=== PATIENT | female | born 1960 | race Caucasian/White ===

== ENCOUNTER → 2016-03-12 | Outpatient (CLI) | payer BC ==
[~2016-03-12] MED LIST: ACET-1311 PO; ASCO500T3 PO; B-COTAB18 PO; BIOT1CAP8 PO; CHOL20005 PO; SPIR25TA PO; VITAMIN E PO; [UNRECOGNIZED DRUG - OTHER] PO
--- NOTE | 2016-03-12 13:53 | DIAGNOSTIC IMAGING REPORT ---
CHEST CT WITHOUT CONTRAST CT DOSE: 172.41 mGycm HISTORY: R91.1 Solitary pulmonary [id number] TECHNIQUE: Multiaxial CT images of the chest were performed without contrast. COMPARISON: Chest CT 08/20/2015. Chest CT 04/14/2012. Chest 05/12/2015. FINDINGS: The central airways are patent. No pleural effusions. No pneumothorax. The 4 mm nodule within the right upper lobe on the 05/02/2015 study is not present. No new or suspicious pulmonary nodules identified. No new focal lung consolidations. Stable 4 mm nodule within the right lower lobe on image 208. This demonstrates greater than 2 year stability and is considered to be benign. There is also a stable 3 mm subpleural nodular density within the right middle lobe on image 197 and a stable 4 mm subpleural nodular density within the right middle lobe on image 153. 4 mm nodular density along the left major fissure on image 110 is also stable. No suspicious lytic or blastic osseous lesions. No mediastinal or hilar lymphadenopathy. Normal caliber thoracic aorta. The visualized liver, spleen, and adrenal glands are unremarkable. IMPRESSION: 1. A 4 mm nodule within the right upper lobe on the 05/02/2015 study is not present. No additional follow-up required. 2. Additional scattered tiny pulmonary nodules as described above demonstrate greater than 2 year stability and are considered to be benign. Electronically signed by: Osmany Zhong M.D. 03/12/2016 1:51 PM Dictated Date/Time: 03/12/2016 1:36 PM
== END | disposition home or self-care (01) ==
LOC: C.CTS 12:49
PROVIDERS: ATTEND Internal Medicine
DX: R91.1 Solitary pulmonary nodule (principal)

== ENCOUNTER → 2016-09-15 | Day surgery (SDC) | payer BC ==
[2016-09-07 08:56] VITALS: Ht 165.1 cm; Wt 62.7 kg
[~2016-09-15] VITALS: Ht 165.1 cm; Wt 62.7 kg
[~2016-09-15] MED LIST changes: +LIDOCAINE HCL 2% 2 ML VIAL (20MG/ML) ONE; +PROPOFOL IV EMULSION 10 MG/ML 20 ML VIAL IV ONE; +SODIUM CHLORIDE 0.9% 500ML 500 ML IV ONE
[2016-09-15 09:35] VITALS: TEMP 36.7
--- NOTE | 2016-09-15 10:04 | Endo History and Physical ---
History & Physical Date of Service: Sep 15, 2016. Chief Complaint: SCREENING FOR COLON CANCER Referring Physician: DR. ANGEL History of Present Illness 56 yo CF who presents for screening colonoscopy. Past Surgical History Hx Cardiac Surgery: No Hx Internal Defibrillator: No Hx Pacemaker: No Hx Abdominal Surgery: Yes () Hx of Implantable Prosthesis: No Hx Post-Op Nausea and Vomiting: No Hx Cancer Surgery: Yes ([facility] BSO) Hx Thoracic Surgery: No Hx Orthopedic: No Family History Colon CA Social History Smoking Status: Never Smoker Hx Substance Use: No Hx Alcohol Use: Yes (OCCASIONALLY) Allergies Coded Allergies: Sulfa Drugs (Verified Allergy, Unknown, HIVES, 09/15/16) Uncoded Allergies: ANIMALS (Allergy, Unknown, WATERY EYES, 09/07/16) ENVIRONMENTAL ALLERGIES (Allergy, Unknown, ITCHING, 09/07/16) Current Medications Reported Home Medications Medications Dose Route/Sig Max Daily Dose Days Date Category Tylenol (Acetaminophen) 325 Mg Tab 325 Mg PO 09/15/16 Reported Vitamin B Complex (B-Complex Vitamins) 1 Tab Tab 1 Tab PO QAM 09/07/16 Reported Biotin 1 Mg Cap 1 Cap PO QAM 09/07/16 Reported [Vitamin E] 1,200 Mcg PO QAM 09/07/16 Reported Vitamin C (Ascorbic Acid) 500 Mg Tab 1 Tab PO QAM 09/07/16 Reported [Tripple [place]] 1 Cap PO QAM 09/07/16 Reported Vitamin D3 (Cholecalciferol) 2,000 Unit Tab 1 Tab PO QAM 09/07/16 Reported Aldactone (Spironolactone) 25 Mg Tab 25 Mg PO BID 09/07/16 Reported Vital Signs Weight (Kilograms): 62.73 Height (Feet): 5 Height (Inches): 5 Date Time Temp Pulse Resp B/P (MAP) Pulse Ox O2 Delivery O2 Flow Rate FiO2 09/15/16 09:35 36.7 90 18 124/71 (88) 100 Room Air Physical Exam General Appearance: WD/WN, no apparent distress Respiratory/Chest: Auscultation: breath sounds normal Cardiovascular: Heart Auscultation: RRR Abdomen: Bowel Sounds: normal Inspection & Palpation: soft, non-distended, no tenderness, guarding & rebound Assessment and Plan Assessment: 56 yo CF who presents for screening colonoscopy. Plan: Proceed with colonoscopy.
--- NOTE | 2016-09-15 11:05 | GI REPORT ---
Procedure Date: 09/15/2016 9:55 AM Procedure: Colonoscopy Indications: Screening for colorectal malignant neoplasm Medicines: Monitored Anesthesia Care Complications: No immediate complications. Estimated Blood Loss: Estimated blood loss: none. Procedure: Pre-Anesthesia Assessment: - Prior to the procedure, a History and Physical was performed, and patient medications and allergies were reviewed. The patient's tolerance of previous anesthesia was also reviewed. The risks and benefits of the procedure and the sedation options and risks were discussed with the patient. All questions were answered, and informed consent was obtained. Prior Anticoagulants: The patient has taken no previous anticoagulant or antiplatelet agents. ASA Grade Assessment: I - A normal, healthy patient. After reviewing the risks and benefits, the patient was deemed in satisfactory condition to undergo the procedure. After I obtained informed consent, the scope was passed under direct vision. Throughout the procedure, the patient's blood pressure, pulse, and oxygen saturations were monitored continuously. The scope was introduced through the anus and advanced to the terminal ileum. The colonoscopy was performed without difficulty. The patient tolerated the procedure well. The quality of the bowel preparation was good. The terminal ileum, ileocecal valve, appendiceal orifice, and rectum were photographed. Findings: The entire examined colon appeared normal. Impression: - The entire examined colon is normal. - No specimens collected. Recommendation: - Resume previous diet. - Continue present medications. - Repeat colonoscopy in 5 years for surveillance. - Return to primary care physician as previously scheduled. Tommy Badillo DO 09/15/2016 11:04:13 AM This report has been signed electronically. Note Initiated On: 09/15/2016 9:55 AM I attest to the content of the Intraoperative Record and orders documented therein, exceptions below
--- NOTE | 2016-09-15 11:14 | Discharge Instructions ---
Endoscopy Patient Instructions Date / Procedure(s) Performed Sep 15, 2016. Colonoscopy Allergy Information Coded Allergies: Sulfa Drugs (Verified Allergy, Unknown, HIVES, 09/15/16) Uncoded Allergies: ANIMALS (Allergy, Unknown, WATERY EYES, 09/07/16) ENVIRONMENTAL ALLERGIES (Allergy, Unknown, ITCHING, 09/07/16) Discharge Date / Findings Sep 15, 2016. Normal colonoscopy Medication Instructions OK to resume all medications today as prescribed Reported Home Medications Medications Dose Route/Sig Max Daily Dose Days Date Category Tylenol (Acetaminophen) 325 Mg Tab 325 Mg PO 09/15/16 Reported Vitamin B Complex (B-Complex Vitamins) 1 Tab Tab 1 Tab PO QAM 09/07/16 Reported Biotin 1 Mg Cap 1 Cap PO QAM 09/07/16 Reported [Vitamin E] 1,200 Mcg PO QAM 09/07/16 Reported Vitamin C (Ascorbic Acid) 500 Mg Tab 1 Tab PO QAM 09/07/16 Reported [Tripple [place]] 1 Cap PO QAM 09/07/16 Reported Vitamin D3 (Cholecalciferol) 2,000 Unit Tab 1 Tab PO QAM 09/07/16 Reported Aldactone (Spironolactone) 25 Mg Tab 25 Mg PO BID 09/07/16 Reported Provider Instructions Activity Restrictions - No exercising or heavy lifting for 24 hours. - Do not drink alcohol the day of the procedure. - Do not drive a car or operate machinery until the day after the procedure. - Do not make any important decisions or sign important papers in 24 hours after the procedure. Following Day: - Return to full activity which may include returning to work/school. Diet Start your diet with liquids and light foods (jello, soup, juice, toast). Then eat your usual diet if not nauseated. Treatment For Common After Affects For mild abdominal pain, bloating, or excessive gas: - Rest - Eat lightly - Lie on right side Follow-Up Information Follow-up with DR. ANGEL as scheduled Anesthesia Information What You Should Know You have had a procedure that required some medicine to reduce anxiety and discomfort. This treatment is called moderate sedation. After receiving the treatment, you may be sleepy, but you will be able to breathe on your own. The effects of the treatment may last for several hours. Follow these instructions along with Activity/Diet recommendations noted above: * Do NOT do anything where dizziness or clumsiness would be dangerous. * Rest quietly at home today, then you can be up and about tomorrow. * Have a responsible person stay with you the rest of today. * You may have had an I.V. today. If so, you may take the dressing off later today. Recommendations Call your doctor if: * Trouble breathing * Continuous vomiting for more than 24 hours * Temperature above 101 degrees * Severe abdominal pain or bloating * Pain not relieved by pain medicine ordered * There is increased drainage or redness from any incision * A large amount of rectal bleeding greater than 2-3 tablespoons. (If you had a polyp/s removed or have hemorrhoids, a small amount of blood - from the rectum is to be expected.) * You have any unanswered questions or concerns. IN THE EVENT OF A SERIOUS EMERGENCY, GO TO THE NEAREST EMERGENCY ROOM Your discharge instructions were prepared by provider Tommy Badillo. Patient Instructions Signature Page Xenia Arellano Patient (or Guardian) Signature/Date: I have read and understand the instructions given to me by my caregivers. Caregiver/RN/Doctor Signature/Date: The above-named patient and/or guardian has received patient instructions on this date. + Original Patient Signature Page (only) stays with chart. Please make copy for patient.
[2016-09-15 11:15] VITALS: BP 105/73; PULSE 64; O2SAT 100
--- NOTE | 2016-09-15 11:23 | Anesthesiology Progress Note ---
Anesthesia Post Op Note Date & Time Sep 15, 2016 at 11:23 Vital Signs Pain Intensity: 0 Vital Signs Past 12 Hours Date Time Temp Pulse Resp B/P (MAP) Pulse Ox O2 Delivery O2 Flow Rate FiO2 09/15/16 11:15 64 16 105/73 (84) 100 Room Air 09/15/16 11:00 82 16 111/77 (88) 97 Room Air 09/15/16 10:45 94 16 110/66 (81) 99 Room Air 09/15/16 09:35 36.7 90 18 124/71 (88) 100 Room Air Notes Mental Status: alert / awake / arousable, participated in evaluation Pt Amnestic to Procedure: Yes Nausea / Vomiting: adequately controlled Pain: adequately controlled Airway Patency, RR, SpO2: stable & adequate BP & HR: stable & adequate Hydration State: stable & adequate Anesthetic Complications: no major complications apparent
== END | disposition home or self-care (01) ==
LOC: C.GI 09:12
PROVIDERS: ATTEND Internal Medicine
DX: Z12.11 Encounter for screening for malignant neoplasm of colon (principal); Z90.710 Acquired absence of both cervix and uterus; Z90.722 Acquired absence of ovaries, bilateral; Z90.79 Acquired absence of other genital organ(s); Z80.0 Family history of malignant neoplasm of digestive organs

== ENCOUNTER → 2016-12-22 | Outpatient (CLI) | payer BC ==
[~2016-12-22] MED LIST changes: -LIDOCAINE HCL 2% 2 ML VIAL (20MG/ML) ONE; -PROPOFOL IV EMULSION 10 MG/ML 20 ML VIAL IV ONE; -SODIUM CHLORIDE 0.9% 500ML 500 ML IV ONE
== END | disposition home or self-care (01) ==
LOC: C.LAB 17:43
PROVIDERS: ATTEND Obstetrics & Gynecology
DX: C54.1 Malignant neoplasm of endometrium (principal)

== ENCOUNTER → 2017-02-25 | Outpatient (CLI) | payer BC | END | disposition home or self-care (01) | LOC: C.LAB1850 16:03 | PROVIDERS: ATTEND Internal Medicine | DX: Z11.59 Encounter for screening for other viral diseases (principal) ==

== ENCOUNTER → 2017-09-21 | Outpatient (CLI) | payer OTHER ==
--- NOTE | 2017-09-21 11:16 | DIAGNOSTIC IMAGING REPORT ---
R SHOULDER MIN 2 VIEWS CLINICAL HISTORY: Right shoulder pain COMPARISON: None. DISCUSSION: No fractures or dislocations are visualized. There is no evidence of erosive disease. IMPRESSION: 1. No fractures or dislocations identified. Electronically signed by: Mayank Bone M.D. 09/21/2017 11:14 AM Dictated Date/Time: 09/21/2017 11:14 AM
== END | disposition home or self-care (01) ==
LOC: C.RDSM 10:50
PROVIDERS: ATTEND Internal Medicine
DX: M25.511 Pain in right shoulder (principal)